=== PATIENT | male | born 1995 | race Caucasian/White ===

== ENCOUNTER 2022-07-12 16:03 | Emergency (ER) | payer OTHER, SELFPAY ==
[2022-07-12 16:12] VITALS: BP 150/79; PULSE 97; RESP 20; TEMP 36.4; O2SAT 97; BMI 24.3
--- NOTE | 2022-07-12 16:22 | DI.RAD.S_ITS ---
PROCEDURE: XR ANKLE RT MIN 3V INDICATIONS: ankle injury TECHNIQUE: 3 views of the ankle were acquired. COMPARISON: None. FINDINGS: Bones: No fractures or dislocations. Ankle mortise is normally aligned. No suspicious bony lesions. Soft tissues: No tibiotalar joint effusion. Achilles tendon appears normal. IMPRESSION: Unremarkable right ankle radiographs Approved by: Noble Taylor M.D. on 07/12/2022 at 17:31
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
[2022-07-12] MEDS: HYDROMORPHONE 1 MG INJ 2 MG IM (19:20)
[2022-07-12] MEDS: KETOROLAC 30 MG/ML VIAL IM (19:20)
[2022-07-12] MEDS: ACETAMINOPHEN 325 MG TABLET 975 MG PO (19:20)
[2022-07-12] MEDS: ONDANSETRON 4 MG ODT SL (20:18)
[2022-07-12] MEDS: BACITRACIN OINT 0.9 GM PCKT 8 APPLIC TOP (21:14)
[2022-07-12] MEDS: HYDROCODONE/ACET 5/325 PREPACK 1 BOTTLE MISC (21:43)
== END 2022-07-12 22:08 | disposition home or self-care (01) ==
PROVIDERS: Emergency Provider Family Medicine Addiction Medicine
DX: S87.81XA Crushing injury of right lower leg, initial encounter (principal); S30.811A Abrasion of abdominal wall, initial encounter; S80.212A Abrasion, left knee, initial encounter; S80.211A Abrasion, right knee, initial encounter; S50.812A Abrasion of left forearm, initial encounter; S50.811A Abrasion of right forearm, initial encounter; S90.812A Abrasion, left foot, initial encounter; S90.811A Abrasion, right foot, initial encounter; V29.9XXA Motorcycle rider (driver) (passenger) injured in unspecified traffic accident, initial encounter
CPT/HCPCS: 73562; 73590; 73610; 96372; 99284; J1170; J1885